=== PATIENT | male | born 1965 | race Caucasian/White ===

== ENCOUNTER → 2016-11-12 | Outpatient (CLI) | payer BC ==
[~2016-11-12] MED LIST: ISOVUE-M 300 61% 15ML VIAL (Q9967) As Ordered ONE
--- NOTE | 2016-11-12 10:37 | REP ---
CT LUMBAR SPINE WITHOUT CONTRAST: HISTORY: Back pain. COMPARISON: MRI 08/12/2017. CT of the lumbar spine was performed status post myelography. There is no disc bulge or herniation at the L1-2 and L2-3 levels. The nerves exit the neural foramina without compression. A diffuse disc bulge is present at the L3-4 level. There is hypertrophy of the ligamenta flava and posterior articulating facets. These findings produce moderate central canal stenosis. The L3 nerves exit the neural foramina without compression. A diffuse disc bulge is present at the L4-5 level. There is hypertrophy of the ligamenta flava and posterior articulating facets. There are 3 mm of grade 1 spondylolisthesis of L4 on 5. These findings produce moderate central canal stenosis. There is compression of the L4 nerves in the neural foramina. A diffuse disc bulge is present at the L5-S1 level. This abuts the thecal sac and S1 nerves. There is hypertrophy of the posterior articulating facets. The L5 nerves exit the neural foramina without compression. The L3-4 and L4-5 intervertebral discs are decreased in height consistent with disc degeneration. The vertebral bodies are normal in height. IMPRESSION: 1. Moderate central canal stenosis at the L3-4 level secondary to disc bulge, ligamentous and facet hypertrophy. 2. Moderate central canal stenosis at the L4-5 level secondary to disc bulge, ligamentous and facet hypertrophy, and grade 1 spondylolisthesis. There is compression of the L4 nerves in the neural foramina. 3. Diffuse disc bulge at the L5-S1 level. This abuts the thecal sac and S1 nerves. The canal stenosis at the L3-4 and L4-5 levels is a new finding. Signed by Tor Garza MD 11/12/2016 10:40 A
--- NOTE | 2016-11-12 10:42 | REP ---
CT CERVICAL SPINE WITHOUT CONTRAST: HISTORY: Neck pain. CT of the cervical spine was performed status post myelography. Comparison 09/05/2016. The patient is status post C5 to 7 anterior spinal fusion. A fixation plate and bone graft material are present. Uncinate process hypertrophy is present in the right at the C3-4 level. This produces minimal narrowing of the right C3 neural foramen. The left C3 neural foramen is patent. A disc bulge with associated osteophyte formation is present at the C4-5 level. There is moderate effacement of the thecal sac without spinal cord compression. Bilateral uncinate process hypertrophy is present. This produces mild narrowing of the C4 neural foramina. Posterior osteophytes are present at the C5-6 level. There is mild effacement of the thecal sac without spinal cord compression. Bilateral uncinate process hypertrophy is present. This produces minimal narrowing of the C5 neural foramina. The posterior osteophytes are present at the C6-7 level. There is mild effacement of the thecal sac without spinal cord compression. Bilateral uncinate process hypertrophy is present. This produces minimal narrowing of the C6 neural foramina. Facet hypertrophy is present on the right at the C7-T1 level. This produces minimal narrowing of the right C7 neural foramen. There is minimal effacement of the thecal sac without spinal cord compression. The left C7 neural foramen is patent. There is no other disc bulge or herniation. The remaining neural foramina are patent. The intervertebral discs are normal in height. There is loss of the normal lordotic curve. Calcifications are present in the tonsils. This is secondary to previous inflammatory disease. IMPRESSION: 1. The patient is status post C5-7 anterior spinal fusion. There is no subluxation. 2. There is cervical spondylosis at the C3-4 through C7-T1 levels. Signed by Tor Garza MD 11/12/2016 10:54 A
--- NOTE | 2016-11-12 15:18 | REP ---
CERVICAL AND LUMBAR MYELOGRAM INJECTION: The procedure was performed under the personal supervision of Dr. Garza. The risks and benefits of the procedure were explained to the patient and informed consent was obtained. The L3-4 interspace was localized using fluoroscopic guidance. The skin was prepped and draped in a sterile fashion. 1% lidocaine was used as a local anesthetic. Using fluoroscopic guidance a 22 gauge spinal needle was inserted and advanced into the thecal sac. 10 mL of Isovue M 300 was injected. The needle was removed. The patient was then tipped to run the contrast up into the cervical spine. The patient was then taken to CAT scan for post procedural imaging. The patient tolerated the procedure well and there were no immediate complications. After the appropriate amount of monitored convalescence the patient was discharged from the department. Fluoroscopic time 41 seconds. Reviewed by ROBEL Awad 11/12/2016 03:46 PEdited and Signed by Tor Garza MD 11/13/2016 11:46 A
== END ==
LOC: M RADPRO 08:10
PROVIDERS: ATTEND Orthopaedic Surgery Orthopaedic Surgery of the Spine
DX: M99.73 Connective tissue and disc stenosis of intervertebral foramina of lumbar region (principal); Z87.891 Personal history of nicotine dependence; M43.16 Spondylolisthesis, lumbar region; M54.12 Radiculopathy, cervical region; M47.812 Spondylosis without myelopathy or radiculopathy, cervical region; M47.813 Spondylosis without myelopathy or radiculopathy, cervicothoracic region
CPT/HCPCS: 62284; 72125; 72131; Q9967

== ENCOUNTER → 2017-07-26 | Outpatient (CLI) | payer BC ==
--- NOTE | 2017-07-26 17:02 | REP ---
Right foot series: Four views. History: Toothpick foreign body. Findings: An opaque BB is affixed to the volar skin at the site of the puncture wound. No opaque foreign body is seen. No fracture or soft tissue gas is seen. Plantar calcaneal spurring is noted. No other abnormality. Eight toothpick would not be expected to be radio-opaque. Impression: No opaque foreign body noted. No fracture noted. Consider soft-tissue ultrasound if retained wooden foreign body is clinically suspected. Signed by Aristides Connolly MD 07/26/2017 04:53 P
== END ==
LOC: M RAD 16:15
PROVIDERS: ATTEND Physician Assistant
DX: M79.671 Pain in right foot (principal)

== ENCOUNTER → 2017-08-08 | Outpatient (CLI) | payer BC ==
[2017-08-08 09:15] LABS: BASO % 0.5 % (0.0-1.0); EOS # 0.2 10^3/uL (0.0-0.50); EOS % 2.8 % (0.0-3.0); IMMATURE GRANULOCYTE % 0.2 % (0-0); LYMPH # 0.7 10^3/uL (1.5-4.5); LYMPH % 12.1 % (24.0-44.0); MEAN CORPUSCULAR HEMOGLOBIN 32.7 pg (27.0-33.0); MEAN CORPUSCULAR HGB CONC 33.8 g/dl (32.0-36.5); MEAN CORPUSCULAR VOLUME 96.5 fl (80.0-96.0); MONO # 0.6 10^3/uL (0.0-0.8); MONO % 9.8 % (0.0-5.0); NEUTROPHILS # 4.3 10^3/uL (1.8-7.7); NEUTROPHILS % 74.6 % (36.0-66.0); PLATELET COUNT, AUTOMATED 154 10^3/uL (150-450); RED CELL DISTRIBUTION WIDTH 11.9 % (11.5-14.5); WHITE BLOOD COUNT 5.7 10^3/uL (4.0-10.0)
[2017-08-08 09:41] LABS: ALBUMIN/GLOBULIN RATIO 1.25 (1.00-1.93); ALKALINE PHOSPHATASE 51 U/L (45-117); ALT/SGPT 26 U/L (12-78); ANION GAP 8 MEQ/L (8-16); AST/SGOT 25 U/L (7-37); BILIRUBIN,TOTAL 0.6 MG/DL (0.2-1.0); BLOOD UREA NITROGEN 11 MG/DL (7-18); CALCIUM LEVEL 8.8 MG/DL (8.5-10.1); CARBON DIOXIDE LEVEL 31 MEQ/L (21-32); CHLORIDE LEVEL 107 MEQ/L (98-107); CHOLESTEROL LEVEL 187 MG/DL (<200); CREATININE FOR GFR 0.85 MG/DL (0.70-1.30); FREE T4 1.05 NG/DL (0.76-1.46); GLOMERULAR FILTRATION RATE > 60.0 (>56); GLUCOSE, FASTING 67 MG/DL (70-105); MAGNESIUM LEVEL 1.8 MG/DL (1.8-2.4); POTASSIUM SERUM 4.2 MEQ/L (3.5-5.1); SODIUM LEVEL 146 MEQ/L (136-145); TOTAL PROTEIN 7.2 GM/DL (6.4-8.2); TRIGLYCERIDES LEVEL 105 MG/DL (<150)
[2017-08-10 10:55] LABS: VITAMIN B12 LEVEL 206 PG/ML (247-911)
[2017-08-10 10:56] LABS: FOLATE 6.1 NG/ML (>5.4)
== END ==
LOC: M LAB 08:04
PROVIDERS: ATTEND Physician Assistant
DX: R20.0 Anesthesia of skin (principal)

== ENCOUNTER 2018-06-25 11:47 | Emergency (ER) | payer BC ==
[2018-06-25] MEDS: MORPHINE 4 MG/ML 1ML VIAL/SYRINGE (J2270) IM (13:30)
[2018-06-25] MEDS: CYCLOBENZAPRINE 10 MG TAB PO (14:40)
== END 2018-06-25 14:54 | disposition home or self-care (01) ==
LOC: M ED 11:47
DX: M54.5 Low back pain (principal); Z88.8 Allergy status to other drugs, medicaments and biological substances; Z87.891 Personal history of nicotine dependence
CPT/HCPCS: J2270

== ENCOUNTER → 2018-08-09 | Outpatient (CLI) | payer BC ==
[2018-08-09 10:39] LABS: BASO % 0.5 % (0.0-1.0); EOS # 0.2 10^3/uL (0.0-0.50); EOS % 5.4 % (0.0-3.0); HEMATOCRIT 44.9 % (42.0-52.0); HEMOGLOBIN 15.4 g/dl (13.5-17.5); IMMATURE GRANULOCYTE % 0.5 % (0-3.0); LYMPH # 1.1 10^3/uL (1.5-4.5); LYMPH % 27.6 % (24.0-44.0); MEAN CORPUSCULAR HGB CONC 34.3 g/dl (32.0-36.5); MEAN CORPUSCULAR VOLUME 96.4 fl (80.0-96.0); MONO # 0.4 10^3/uL (0.0-0.8); MONO % 11.2 % (0.0-5.0); NEUTROPHILS # 2.2 10^3/uL (1.8-7.7); NEUTROPHILS % 54.8 % (36.0-66.0); PLATELET COUNT, AUTOMATED 165 10^3/uL (150-450); RED BLOOD COUNT 4.66 10^6/uL (4.30-6.10); RED CELL DISTRIBUTION WIDTH 12.1 % (11.5-14.5); WHITE BLOOD COUNT 3.9 10^3/uL (4.0-10.0)
[2018-08-09 10:50] LABS: INR 0.98; PROTHROMBIN TIME 13.1 SECONDS (12.1-14.4)
== END ==
LOC: M LAB 09:44
DX: M48.061 Spinal stenosis, lumbar region without neurogenic claudication (principal)
CPT/HCPCS: 85610

== ENCOUNTER → 2018-08-16 | Outpatient (CLI) | payer BC ==
[~2018-08-16] MED LIST changes: +ISOVUE-M 300 61% 15ML VIAL (Q9967) As Ordered; -ISOVUE-M 300 61% 15ML VIAL (Q9967) As Ordered ONE
== END ==
LOC: M RADPRO 07:29
DX: M54.5 Low back pain (principal); M54.2 Cervicalgia; Z88.8 Allergy status to other drugs, medicaments and biological substances
CPT/HCPCS: 62302